=== PATIENT | male | born 1995 | race Two or more races ===

== ENCOUNTER 2023-06-26 11:33 | Emergency (ER) | payer SELFPAY ==
[~2023-06-26] VITALS: Ht 165.1 cm; Wt 60.0 kg
[2023-06-26 11:40] VITALS: O2SAT 99
[2023-06-26] MEDS: TETANUS AND DIPHTHERIA TOX/PF 0.5ML SYR (ADULT) IM ONE (12:15)
[2023-06-26] MEDS ORDERED: AMOX1TAB16 MT (12:38)
[2023-06-26 14:52] VITALS: BP 114/75; PULSE 79; RESP 20; TEMP 98.2
== END 2023-06-26 15:03 | disposition home or self-care (01) ==
LOC: ER 12:42
DX: S50.812A Abrasion of left forearm, initial encounter (principal); F12.90 Cannabis use, unspecified, uncomplicated; W54.0XXA Bitten by dog, initial encounter; Y93.89 Activity, other specified; Y92.89 Other specified places as the place of occurrence of the external cause; Y99.8 Other external cause status
CPT/HCPCS: 90714; 90471; 99283; Z7610